=== PATIENT | male | born 1995 ===

== ENCOUNTER 2016-05-22 17:42 | Emergency (ER) | payer OTHER ==
[~2016-05-22] VITALS: Ht 175.3 cm; Wt 77.6 kg
[2016-05-22 18:00] VITALS: TEMP 36.9; Ht 175.3 cm; Wt 77.6 kg
[2016-05-22] MEDS ORDERED: ASPI-100 PO (18:36)
[2016-05-22 19:56] VITALS: BP 130/75; PULSE 79; O2SAT 96
--- NOTE | 2016-05-22 20:57 | EMERGENCY ROOM VISIT NOTE ---
History Report prepared by Dick: Godfrey Cole Under the Supervision of: Fred PetersenO. First contact with patient: 18:18 Chief Complaint: FLU LIKE SX Stated Complaint: SORE THROAT,PAIN CLOSE TO THE EAR,TIRED History of Present Illness The patient is a 20 year old male who presents to the Emergency Room with complaints of persistent flu like symptoms beginning about 2 days ago. He notes that he has had a fever for the past two days, and also complains of a sore throat, rhinorrhea, and an occasional cough. He notes today he feels better and has not had a fever today. He notes feeling slightly weaker than baseline with walking around and has some ear pain, but denies any back pain, nausea, vomiting , diarrhea, or urinary symptoms. The patient denies any recent sick contact, and has not been seen anywhere for his symptoms. He notes having no other medical problems. He is up to date on his immunizations. Patient has had no recorded fevers. He notes that he is feeling significantly better. Source of History: patient Onset: about 2 days ago Position: other (global) Quality: other (flu like symptoms) Timing: other (persistent) Associated Symptoms: + cough, + fevers, + sorethroat, + weakness, No back pain, No diarrhea, No nausea, No urinary symptoms, No vomiting Note: The patient notes having some ear pain and rhinorrhea. Review of Systems See HPI for pertinent positives & negatives. A total of 10 systems reviewed and were otherwise negative. Past Medical & Surgical Medical Problems: (1) No Known Active Medical Problems Family History No pertinent family history stated. Social History Smoking Status: Current Every Day Smoker Occupation Status: [employer] student Current/Historical Medications Scheduled Hdcsxex-Zcuw-Yixdvzy-Caff (Pain Relief), 1 TAB PO DIRECTED Allergies Coded Allergies: No Known Allergies (Unverified , 05/22/16) Physical Exam Vital Signs Date Time Temp Pulse Resp B/P Pulse Ox O2 Delivery O2 Flow Rate FiO2 05/22/16 19:56 79 18 130/75 96 05/22/16 18:00 36.9 81 20 143/79 98 Room Air Physical Exam GENERAL: Sitting in chair, alert, well appearing, well nourished, no distress, non-toxic EYE EXAM: normal conjunctiva, PERRL and EOM's intact EARS: TMs clear bilaterally. OROPHARYNX: no exudate, no erythema, lips, buccal mucosa, and tongue normal and mucous membranes are moist NECK: supple, no nuchal rigidity, no adenopathy, non-tender LUNGS: Clear to auscultation. Normal chest wall mechanics HEART: no murmurs, S1 normal and S2 normal ABDOMEN: abdomen soft, non-tender, normo-active bowel sounds, no masses, no rebound or guarding. BACK: Back is symmetrical on inspection and there is no deformity, no midline tenderness, no CVA tenderness. SKIN: no rashes and no bruising UPPER EXTREMITIES: upper extremities are grossly normal. LOWER EXTREMITIES: No pitting edema. NEURO EXAM: Normal sensorium, cranial nerves II-XII grossly intact, normal speech, no gross weakness of arms, no gross weakness of legs. Gross sensation intact. Medical Decision & Procedures Laboratory Results Test 05/22/16 18:50 Influenza Type A Antigen Neg for Influ A (NEG) Influenza Type B Antigen Neg for Influ B (NEG) Laboratory results per my review. ED Course ED COURSE: Vital signs were reviewed and showed normal. The patients medical record was reviewed The above diagnostic studies were performed and reviewed. ED treatments and interventions as stated above. 1818: The patient was evaluated in room C2B. A complete history and physical examination was performed. 1944: Upon reevaluation, the patient is doing well.I discussed my findings with the patient and he understands and agrees with the treatment plan. Based on the patients age, coexisting illnesses, exam and lab findings the decision to treat as an outpatient was made. The patient remained stable while under my care. The patient appeared well at the time of discharge. Medical Decision Differential diagnosis: Etiologies such as viral syndrome, otitis, pharyngitis, pneumonia, influenza, meningitis, urinary tract infection, sepsis, bacteremia, as well as others were entertained. Patient is a 20-year-old male who presents the ER for cough, runny nose, congestion and a sore throat. He notes his symptoms have improved significantly over the past 2 days. Today he has a sore throat. He is no longer feeling hot and cold. He is able to eat and drink. Exam is completely unremarkable. Influenza a and B were negative. Rapid strep was negative. Patient specifically better and is discharged with a viral URI based on his symptoms. Discussed with Pt concerning signs and symptoms to watch out for. Pt was instructed to follow up with their PCP and discussed with the patient their option to return to the ED at anytime for persistent or worsening symptoms. The appropriate anticipatory guidance and out-patient management, including indications for return to the emergency department, were explained at length to the patient and understood. Impression Primary Impression: Viral URI Additional Impression: Pharyngitis Scribe Attestation The scribe's documentation has been prepared under my direction and personally reviewed by me in its entirety. I confirm that the note above accurately reflects all work, treatment, procedures, and medical decision making performed by me. Departure Information Dispostion Home / Self-Care Patient Instructions ED URI Viral, My [facility] Additional Instructions Please follow up with your primary care doctor with in the next 24 hours. Any worsening of your symptoms, please return to the ED immediately. This includes fevers greater than 100.4, worsening pain, confusion, stiff neck, headache, or any other concerning signs or symptoms from your standpoint. Please take Motrin or Tylenol as needed for pain. Problem Qualifiers Additional Impression: Pharyngitis Pharyngitis/tonsillitis etiology: unspecified etiology Qualified Codes: J02.9 - Acute pharyngitis, unspecified
--- NOTE | 2016-05-24 15:48 | Pharmacy Progress Note ---
ED Pharmacist Culture FollowUp Date of Service: May 24, 2016. Patient's rapid Grp A Strep screen came back negative, however the backup cx grew Grp C Strep which can cause bacterial pharyngitis that is indistinguishable from GAS pharyngitis, especially among college age patients. He was not given Rx for ABX on discharge. Case reviewed with Dr Augustine; The plan was to start this patient on Amoxil 500mg PO BID x 10 days if still symptomatic. I called the patient for a clinical check-up. He states the sore throat is gone as well as most of his symptoms, therefore no order for Rx given,
== END 2016-05-22 19:58 | disposition home or self-care (01) ==
LOC: C.EDB 17:45 → C.EDC 19:58
DX: J06.9 Acute upper respiratory infection, unspecified (principal); J02.9 Acute pharyngitis, unspecified; F17.210 Nicotine dependence, cigarettes, uncomplicated